=== PATIENT | female | born 1940 | race Caucasian/White ===

== ENCOUNTER → 2016-11-04 | Outpatient (CLI) | payer OTHER, BC ==
[2016-11-04 13:50] LABS: THYROID STIMULATING HORMONE 3.31 uIu/ml (0.300-4.500)
== END | disposition home or self-care (01) ==
LOC: C.LABMFLN 07:56
PROVIDERS: ATTEND Family Medicine
DX: E03.9 Hypothyroidism, unspecified (principal)

== ENCOUNTER → 2017-03-30 | Outpatient (CLI) | payer OTHER, BC ==
[2017-03-29 18:43] LABS: LYME DISEASE AB IGG NEG (NEG); LYME DISEASE AB IGM NEG (NEG)
[2017-03-30 23:46] LABS: RAPID PLASMA REAGIN NONREACTIVE (NONREACT)
[2017-03-31 21:35] LABS: GLIADIN DEAMIDATED IgA AB 5 UNITS (<20); GLIADIN DEAMIDATED IgG AB 3 UNITS (<20); RETICULIN IgA AB Negative (Negative)
--- NOTE | 2017-04-04 11:26 | CODING QUERY MEDICAL NECESSITY ---
SUPPORTING DIAGNOSIS NEEDED Dr. Simons, A supporting diagnosis is required for the test/procedure performed on this patient in order for us to be reimbursed by the patient's insurance. Please provide a supporting diagnosis for the following test/procedure listed below next to the test name along with your signature. *If there is no additional diagnosis for this patient that would support the following test/procedure please document that below next to the test/procedure. Test(s)/Procedure(s) that require a supporting diagnosis: * ([id number]) B12 VITAMIN LEVEL DIAGNOSIS: DATE OF SERVICE: 03/29/17 Provider Signature: Date: Thank you Abraham [facility] Information Management Once completed, please kindly fax back to [phone] For questions please call [phone]
== END | disposition home or self-care (01) ==
LOC: C.LABMFLN 13:52
PROVIDERS: ATTEND Psychiatry & Neurology Neurology
DX: M47.816 Spondylosis without myelopathy or radiculopathy, lumbar region (principal); G62.9 Polyneuropathy, unspecified

== ENCOUNTER → 2017-04-01 | Outpatient (CLI) | payer OTHER, BC ==
[2017-04-05 12:32] LABS: CREATININE UR 52 MG/DL (20-320)
== END | disposition home or self-care (01) ==
LOC: C.LABMFLN 08:44
PROVIDERS: ATTEND Psychiatry & Neurology Neurology
DX: M47.816 Spondylosis without myelopathy or radiculopathy, lumbar region (principal)

== ENCOUNTER → 2017-04-06 | Outpatient (CLI) | payer OTHER, BC ==
--- NOTE | 2017-04-06 16:21 | DIAGNOSTIC IMAGING REPORT ---
MRI OF THE LUMBAR SPINE WITHOUT IV CONTRAST CLINICAL HISTORY: Chronic low back pain and lumbar radiculopathy. COMPARISON STUDY: No priors. TECHNIQUE: MRI of the lumbar spine is performed utilizing various T1 and T2-weighted sequences in the axial and sagittal planes. IV contrast was not administered for this examination. The examination is significantly degraded by open MRI technique. FINDINGS: Lumbar spine: Vertebral body height and alignment are maintained at the lumbar spine. Marrow signal intensity is slightly heterogeneous. No destructive bony lesion is seen. The transverse and spinous processes appear intact. There is no evidence of spondylolysis. Tiny anterior osteophytes are seen in the lower lumbar region. A small hemangioma is suspected in the body of L4. Intervertebral discs: There is degenerative disc desiccation seen throughout the lumbar spine. Mild loss of height is noted at all levels. Spinal cord: The visualized spinal cord is normal in morphology and signal intensity. The conus medullaris terminates at the level of L1. The nerve roots and the cauda equina are normal in morphology. L1-L2: Unremarkable. L2-L3: There is minimal disc bulge. The central canal and neural foramina are patent. L3-L4: There is a small posterior disc bulge with annular fissure. There is no significant acquired compromise of the central canal at this level. Minimal bilateral subarticular stenosis is observed. The neural foramina are patent. Bilateral facet joint effusions are noted. L4-L5: There is a small posterior disc bulge. There is minimal bilateral subarticular stenosis. There is no significant acquired compromise of the central canal. The neural foramina are patent. L5-S1: The central canal and neural foramina are patent. Sacrum: There is fatty marrow replacement noted in the sacrum. No acute abnormality is seen. Soft tissues: There is fatty atrophy of the paraspinous musculature. The kidneys demonstrate cortical atrophy. The visualized retroperitoneal structures are otherwise grossly unremarkable but incompletely evaluated. IMPRESSION: 1. There is no large disc herniation, significant central canal stenosis, or high-grade neural foraminal narrowing seen throughout the lumbar spine. 2. Degenerative disc disease as above. See discussion for detailed level by level analysis. Dictated: 04/06/2017 3:52 PM Transcribed: 04/06/2017 4:21 PM Vi Electronically signed by: Brandon Urena M.D. 04/06/2017 4:21 PM Dictated Date/Time: 04/06/2017 3:52 PM
== END | disposition home or self-care (01) ==
LOC: C.OPENMRI 14:09
PROVIDERS: ATTEND Psychiatry & Neurology Neurology
DX: M47.816 Spondylosis without myelopathy or radiculopathy, lumbar region (principal); M54.16 Radiculopathy, lumbar region

== ENCOUNTER → 2017-11-22 | Outpatient (CLI) | payer OTHER, BC ==
[2017-11-22 12:20] LABS: BASO % 0.5 %; BASO ABS # 0.02 K/uL (0-0.2); EOS % 0.9 %; EOS ABS # 0.04 K/uL (0-0.5); HEMATOCRIT 39.2 % (37-47); HEMOGLOBIN 12.5 g/dL (12.0-16.0); IG# 0.01 K/uL (0.00-0.02); LYMPH % 32.6 %; LYMPH ABS # 1.44 K/uL (1.2-3.4); MEAN CELL VOLUME 98.2 fL (80-100); MEAN CORPUSCULAR HEMOGLOBIN 31.3 pg (25-34); MEAN CORPUSCULAR HGB CONC 31.9 g/dl (32-36); MEAN PLATELET VOLUME 10.6 fL (7.4-10.4); MONO % 11.1 %; MONO ABS # 0.49 K/uL (0.11-0.59); NEUT % 54.7 %; NEUT ABS # 2.42 K/uL (1.4-6.5); PLATELET COUNT 225 K/uL (130-400); RED CELL DISTRIBUTION WIDTH CV 14.2 % (11.5-14.5); RED CELL DISTRIBUTION WIDTH SD 50.6 fL (36.4-46.3); WHITE BLOOD COUNT 4.42 K/uL (4.8-10.8)
[2017-11-22 13:18] LABS: ALBUMIN 3.4 gm/dl (3.4-5.0); ALT/SGPT 40 U/L (12-78); AST/SGOT 37 U/L (15-37); BLOOD UREA NITROGEN 14 mg/dl (7-18); CALCIUM 8.5 mg/dl (8.5-10.1); CARBON DIOXIDE 26 mmol/L (21-32); CREATININE 0.87 mg/dl (0.60-1.20); GLUCOSE 83 mg/dl (70-99); POTASSIUM 4.6 mmol/L (3.5-5.1); SODIUM 138 mmol/L (136-145)
[2017-11-22 13:27] LABS: ALKALINE PHOSPHATASE 80 U/L (45-117); CHOLESTEROL 207 mg/dl (0-200); LDL CHOLESTEROL CALCULATED 116 mg/dl
== END | disposition home or self-care (01) ==
LOC: C.LABMFLN 15:17
PROVIDERS: ATTEND Family Medicine
DX: I82.409 Acute embolism and thrombosis of unspecified deep veins of unspecified lower extremity (principal); E78.5 Hyperlipidemia, unspecified; E03.9 Hypothyroidism, unspecified

== ENCOUNTER → 2018-03-01 | Outpatient (CLI) | payer OTHER, BC ==
[2018-03-01 18:02] LABS: INR 1.3 (0.9-1.1)
== END | disposition home or self-care (01) ==
LOC: C.LABMFLN 17:50
PROVIDERS: ATTEND Family Medicine
DX: I82.409 Acute embolism and thrombosis of unspecified deep veins of unspecified lower extremity (principal)